=== PATIENT | female | born 1940 | race Caucasian/White ===

== ENCOUNTER 2017-12-27 16:16 | Emergency (ER) | payer MEDICARE, MEDICAID ==
[~2017-12-27] VITALS: Ht 149.9 cm; Wt 71.0 kg
[2017-12-27] MEDS ORDERED: HYDROCODONE/ACETAMINOPHEN 5/325MG TABLET PO STA (19:46)
[2017-12-27 22:30] VITALS: BP 148/76
== END 2017-12-27 22:35 | disposition home or self-care (01) ==
LOC: ER 17:14
DX: S42.142A Displaced fracture of glenoid cavity of scapula, left shoulder, initial encounter for closed fracture (principal); I10 Essential (primary) hypertension; M81.0 Age-related osteoporosis without current pathological fracture; M19.90 Unspecified osteoarthritis, unspecified site; Z90.710 Acquired absence of both cervix and uterus; Z98.49 Cataract extraction status, unspecified eye; W01.0XXA Fall on same level from slipping, tripping and stumbling without subsequent striking against object, initial encounter; Y93.89 Activity, other specified; Y92.018 Other place in single-family (private) house as the place of occurrence of the external cause
CPT/HCPCS: 73030; 73080; 73200; 99284; A4565

== ENCOUNTER → 2018-04-13 | Outpatient (CLI) | payer MEDICARE, MEDICAID | END | disposition home or self-care (01) | LOC: MAMMO 12:10 | PROVIDERS: ATTEND Internal Medicine Nephrology | DX: M81.0 Age-related osteoporosis without current pathological fracture (principal); M75.102 Unspecified rotator cuff tear or rupture of left shoulder, not specified as traumatic | CPT/HCPCS: 73221; 77080 ==

== ENCOUNTER 2018-05-16 15:56 | Emergency (ER) | payer MEDICARE, MEDICAID ==
[~2018-05-16] VITALS: Ht 149.9 cm; Wt 70.0 kg
[2018-05-16 17:17] LABS: BASOPHILS % 0.3 % (0.0-2.0); EOSINOPHILS % 0.8 % (0.0-5.0); HEMATOCRIT. 45.1 % (36.0-48.0); HEMOGLOBIN. 15.4 g/dL (12.0-16.0); LYMPHOCYTES % 14.6 % (20.0-50.0); MEAN CORPUSCULAR HEMOGLOBIN 30.9 pg (28.0-32.0); MEAN CORPUSCULAR VOLUME 90.7 fL (81.0-99.0); MONOCYTES % 6.3 % (2.0-8.0); PLATELET 213 x1000/uL (130-400); RED BLOOD CELL COUNT 4.97 mill/uL (4.2-5.4); RED CELL DISTRIBUTION WIDTH 13.7 % (11.6-14.6)
[2018-05-16 17:21] LABS: INR 1.1; PROTHROMBIN TIME 10.7 sec (9.1-11.1)
[2018-05-16 17:22] LABS: CHLORIDE 103 mEq/L (98-107)
[2018-05-16] MEDS: SODIUM CHLORIDE 0.9% 1,000 ML IV ONE (20:01)
[2018-05-16] MEDS: KETOROLAC 15MG/ML VIAL IV ONE (20:02)
[2018-05-16 20:43] VITALS: BP 184/75
[2018-05-16 20:43] LABS: CLARITY URINE CLEAR (CLEAR); COLOR URINE YELLOW (YELLOW); KETONES URINE NEGATIVE (NEGATIVE); LEUKOCYTE ESTERASE URINE TRACE (NEGATIVE); NITRITE URINE NEGATIVE (NEGATIVE); OCCULT BLOOD URINE NEGATIVE (NEGATIVE); PH URINE 7.5 (4.5-8.0); PROTEIN URINE NEGATIVE (NEGATIVE); UROBILINOGEN URINE 0.2 E.U./dL (0.2-1.0)
== END 2018-05-16 20:45 | disposition home or self-care (01) ==
LOC: ER 19:48
DX: R42 Dizziness and giddiness (principal); R51 Headache; R79.89 Other specified abnormal findings of blood chemistry; I10 Essential (primary) hypertension; M19.90 Unspecified osteoarthritis, unspecified site
CPT/HCPCS: 36415; 70450; 71045; 80053; 81003; 83880; 84484; 85025; 85610; 93005; 96361; 96374; 99285; J1885; J7030

== ENCOUNTER → 2018-12-19 | Outpatient (CLI) | payer MEDICARE, MEDICAID | END | disposition home or self-care (01) | LOC: CARD 13:43 | PROVIDERS: ATTEND Internal Medicine Nephrology | DX: R00.1 Bradycardia, unspecified (principal); Z98.49 Cataract extraction status, unspecified eye | CPT/HCPCS: 93005 ==